=== PATIENT | male | born 1960 | race Caucasian/White ===

== ENCOUNTER 2019-05-22 08:36 | Day surgery (SDC) | payer BC ==
[~2019-05-22 08:36] MED LIST: CEFAZOLIN 2 Gram 2 GM/50 ML BAG IVPB SCH; FAMOTIDINE 20MG TABLET PO ONE; MECLIZINE 25 MG TABLET PO ONE; METOCLOPRAMIDE 10 MG TABLET PO ONE
[2019-05-22] MEDS ORDERED: ONDANSETRON HCL IV 4 MG/2 ML VIAL IVP ONE (08:37)
[2019-05-22] MEDS ORDERED: LIDOCAINE 2% MDV (20MG/ML) 20ML VIAL IV ONE (08:37)
[2019-05-22] MEDS ORDERED: BUPIVACAINE 0.25% MPF 30ML VIAL IVP ONE (08:37)
[2019-05-22] MEDS ORDERED: DEXAMETHASONE 4 MG/ML 1ML VIAL IVP ONE ×2 (08:37)
[2019-05-22] MEDS ORDERED: GLYCOPYRROLATE 0.2 MG/ML ML IV ONE (08:37)
[2019-05-22] MEDS ORDERED: BUPIVACAINE LIPOSOME/PF 133MG/10ML VIAL IV ONE (08:37)
[2019-05-22] MEDS ORDERED: RINGERS SOLUTION,LACTATED 1,000 ML IV ONE (09:45)
[2019-05-22] MEDS ORDERED: MORPHINE SULFATE PF 10MG/10ML *10ML VIAL IU ONE (12:00)
[2019-05-22] MEDS ORDERED: BUPIVACAINE 0.5% W/EPI MPF 30 ML VIAL SQ ONE (12:00)
[2019-05-22] MEDS ORDERED: CEFAZOLIN 1 Gram 1 GM/50 ML BAG IVPB ONE (12:56)
--- NOTE | 2019-05-28 09:51 | Operative Note ---
DATE OF SURGERY: 05/22/2019 PREOPERATIVE DIAGNOSIS: Tear of the rotator cuff on the left. POSTOPERATIVE DIAGNOSES: 1. Large macerated tear of the left rotator cuff. 2. Profound external impingement of the left shoulder. 3. Complex glenohumeral labral tear. 4. Advanced arthrosis left distal clavicle. OPERATION: 1. Repair of a chronically torn rotator cuff tear on the left. 2. Left shoulder arthroscopy with interarticular debridement. 3. Left shoulder open acromioplasty, CA ligament resection, subacromial bursectomy. 4. Left shoulder distal clavicle resection. STAFF SURGEON: Victoriano Duvall MD ANESTHESIA: Block with sedation. PREPARATION: Chloraprep. INDIVIDUAL CONSIDERATIONS: None. PROCEDURE: The patient was taken to the operating room, placed supine on the operating room table. He had a successful induction of a shoulder block. He was then placed in a semi-seated beach chair position and was given sedation. Examination under anesthesia showed no instability. He was prepped and draped in the usual fashion. The patient had posterior portal identified for arthroscopy. Skin was again infiltrated with 0.5% Marcaine with epinephrine prior. An 18-gauge spinal needle was placed in the joint, and the joint was inflated with normal saline. A stab wound was made, and a blunt-tipped trocar for the scope was easily placed in the joint. The joint was inflated with normal saline. The patient had an obvious tear of the rotator cuff and the supraspinatus. Long head was intact. Glenohumeral joint was intact. No significant synovitis except underneath the long head anteriorly. Lots of frayed labrum. Shaver was introduced. Small synovitis was debrided and the frayed labrum was debrided out to a stable rim. After irrigation, portals were closed with tatiana. The patient had an anterior approach to the subacromial space and distal clavicle. Skin was infiltrated with 0.5% Marcaine with epinephrine prior. Sharp dissection carried down through skin and subcutaneous tissue. Small veins were coagulated with a Bovie. An anterior deltoid interval was developed. Care was taken not to split the deltoid more than about 4 cm distal to the anterior tip of the acromion to prevent injury to the axillary nerve. Once in the subacromial space, there was a large saavedra of fluid consistent with a tear. The deltoid was then taken subperiosteally off the anterior aspect of the acromion, over the top of the intact CA ligament, and off the anterior aspect of a highly degenerated distal clavicle. CA ligament was resected with a Bovie. Distal clavicle was resected with an oscillating saw. The patient had downsloping acromion with huge spurs. An anterior acromioplasty was performed taking about a centimeter tapering towards posteromedially to include the spurs at the AC joint. The undersurface was smoothed with a rasp. An extremely thickened bursa, in some areas it was 1 cm thick, was all debrided out. I now had a good look at the rotator cuff. Basically pretty much all the supraspinatus was basically torn, and it looked like it had been chewed on, inner substance extending in the insertion there was probably about 1 to 1.25 cm of macerated tendon remaining at the insertion. I basically pieced it back together again with multiple retention sutures of #1 Ethibond buried knot and then interrupted buried knot 0 Ethibond sutures. This reapproximated as best I could. I would say I was able to get maybe 80% of it reapproximated. I put the shoulder through a full range of motion to ensure no further impingement. After irrigation, the deltoid was reattached to the remaining acromion with multiple interrupted #2 Vicryl going directly through the bony acromion. The periosteal cuff of the distal clavicle was closed with running #2 Vicryl. Anterior deltoid interval was closed with running #1 Vicryl. Subcu was closed with running 2-0 plus Vicryl and skin was closed with tatiana. Roughly 10 mL of 0.5% Marcaine with epinephrine along with 10 mg of morphine was injected into the subacromial space through an 18-gauage needle. A sterile bulky compressive dressing and sling were applied. The patient tolerated the procedure well. Needle and sponge counts were correct. Estimated blood loss was minimal. He was taken back to recovery in good condition. There were no complications. [facility]
== END 2019-05-22 13:40 | disposition home or self-care (01) ==
LOC: SUR 08:36
PROVIDERS: ATTEND Orthopaedic Surgery
DX: M75.102 Unspecified rotator cuff tear or rupture of left shoulder, not specified as traumatic (principal); S43.432A Superior glenoid labrum lesion of left shoulder, initial encounter; M75.42 Impingement syndrome of left shoulder; M19.012 Primary osteoarthritis, left shoulder; I10 Essential (primary) hypertension; E03.9 Hypothyroidism, unspecified
CPT/HCPCS: 29822; 23412; 23130; 23120; 01630; 64415; J2405; J0690 ×2; C9290; 76942; J7120